=== PATIENT | male | born 1940 | race Caucasian/White ===

== ENCOUNTER 2018-01-03 09:07 | Day surgery (SDC) | payer OTHER ==
[2017-12-30 09:25] LABS: Absolute Lymphocytes (CBC) 1.5 K/uL (0.7-4.9); Absolute Monocytes 0.8 K/uL (0.1-1.3); Absolute Neutrophil 5.3 K/uL (1.8-8.0); Basophils % 0.3 % (0-1.3); Eosinophils % 1.7 % (0-4.4); Hematocrit 39.7 % (39.6-49.0); Lymphocytes % 19.5 % (15.3-44.8); MCH 28.6 pg (27.0-35.0); MCV 84.2 fL (80-100); RBC Red Blood Cell Count 4.71 M/uL (4.33-5.43)
[2017-12-30 09:30] LABS: Protime INR 1.28
--- NOTE | 2017-12-30 09:49 | RAD REPORT ---
EXAM DESCRIPTION: Alberta Arias (2 Views)12/30/2017 9:19 am CLINICAL HISTORY: Chest pain COMPARISON: 2016 FINDINGS: The lungs appear clear of acute infiltrate. The heart is normal size IMPRESSION: No acute abnormalities displayed
[2017-12-30 10:02] LABS: BUN Blood Urea Nitrogen 17 mg/dL (6-20); Bicarbonate 26 mEq/L (21-31); Glucose Level 120 mg/dL (65-120); Potassium 3.9 mEq/L (3.6-5.0); Sodium Level 140 mEq/L (135-145)
--- OUTSIDE RECORDS SUMMARY | 2018-01-03 09:10 | XMS REPORT | Clinical Summary ---
:1940 Author Organization [facility] Address [address] [place] [address] Care Team Providers Name Role Phone Fernando Asif MD Primary Care Provider Allergies No Known Allergies Current Medications Prescription Sig. Disp. Refills Start Date End Date Status metoprolol tartrate Take 100 mg by Active (LOPRESSOR) 100 mg tablet mouth 2 (two) times a day. pantoprazole (PROTONIX) Take 40 mg by mouth Active 40 MG EC tablet 2 (two) times a day. atorvastatin (LIPITOR) 10 Take 10 mg by mouth Active MG tablet daily. clopidogrel (PLAVIX) 75 Take 75 mg by mouth Active mg tablet daily. tamsulosin (FLOMAX) 0.4 Take 0.4 mg by Active mg capsule,extended mouth daily. release 24hr oxybutynin XL (DITROPAN Take 15 mg by mouth Active XL) 10 MG 24 hr tablet daily. traMADol (ULTRAM) 50 mg Take 50 mg by mouth Active tablet every 6 (six) hours as needed for moderate pain. amlodipine-benazepril Take 1 capsule by Active (LOTREL) 10-20 mg per mouth daily. capsule fluticasone (FLONASE) 50 2 sprays by Each Active mcg/actuation nasal spray Nare route daily. acetaminophen (TYLENOL) Take 500 mg by Active 500 MG tablet mouth every 6 (six) hours as needed for mild pain. cetirizine HCl (ALLERGY Take by mouth. Active RELIEF, CETIRIZINE, ORAL) Active Problems Not on file Encounters Date Type Specialty Care Team Description 12/27/2017 Procedure Pass Urology 12/20/2017 Pre-Admit Testing Pre-Admission Mukund Haynes Pre-op testing Appointment Testing MD Tanja (Primary Dx) after 01/02/2017 Social History Tobacco Use Types Packs/Day Years Used Date Never Smoker Smokeless Tobacco: Never Used Alcohol Use Drinks/Week oz/Week Comments Yes 2/week Sex Assigned at Date Recorded Not on file Last Filed Vital Signs Vital Sign Reading Time Taken Blood Pressure 144/65 12/20/2017 3:11 PM CDT Pulse 52 12/20/2017 3:11 PM CDT Temperature 36.7 C (98.1 F) 12/20/2017 3:11 PM CDT Respiratory Rate 18 12/20/2017 3:11 PM CDT Oxygen Saturation 96% 12/20/2017 3:11 PM CDT Inhaled Oxygen Concentration - - Weight 104 kg (230 lb) 12/20/2017 3:11 PM CDT Height 162.6 cm (5' 4") 12/20/2017 3:11 PM CDT Body Mass Index 39.48 12/20/2017 3:11 PM CDT Plan of Treatment Health Maintenance Due Date Last Done Comments COLONOSCOPY 1992 SHINGRIX VACCINE (#1) 1992 ZOSTER VACCINE 2002 PNEUMOCOCCAL POLYSACCHARIDE VACCINE AGE 65 AND OVER 2007 PNEUMOCOCCAL-13 2007 INFLUENZA VACCINE 03/29/2018 Results Urine culture (12/20/2017 4:30 PM) Component Value Ref Range Urine culture SEE COMMENTComment: Bacteriuria screen negative. Specimen Performing Laboratory [facility] DEPARTMENT OF PATHOLOGY AND GENOMIC MEDICINE [address] [place] [id number] Urinalysis screen and microscopy, with reflex to culture (12/20/2017 3:04 PM) Component Value Ref Range Specimen site Clean catch Color, UA Yellow Appearance, UA Clear Specific gravity, UA 1.021 1.001 - 1.035 pH, UA 5.0 5.0 - 8.5 Protein, UA 1+ (A) Negative Glucose, UA Negative Negative Ketones, UA Negative Negative Bilirubin, UA Negative Negative Blood, UA Negative Negative Nitrite, UA Negative Negative Urobilinogen, UA <2.0 <2.0 Leukocyte esterase, UA Negative Negative Epithelial cells, UA <1 /HPF WBC, UA 1 0 - 1 /HPF RBC, UA 2 0 - 5 /HPF Bacteria, UA Few None seen Yeast, UA None seen Yeast with pseudohyphae, UA None seen Hyaline casts, UA 17 /LPF Specimen Performing Laboratory Urine [facility] DEPARTMENT OF PATHOLOGY AND GENOMIC MEDICINE [address] [place] [address] [place] [address] Estimated GFR (12/20/2017 3:04 PM) Component Value Ref Range GFR Non Af Amer 73 mL/min/1.73 m2 GFR Af Amer 88 mL/min/1.73 m2 Comment: Chronic kidney disease: <60 mL/min/1.73m2 Kidney failure: <15 mL/min/1.73m2 The estimated GFR is calculated from the IDMS-traceable Modification of Diet in Renal Disease Equation. The accuracy of the calculation is poor when the creatinine is normal. Calculated values >90 mL/min/1.73m2 are not reported. This equation has not been validated in children (<18 years), women, the elderly (>70 years), or ethnic groups other than Caucasians and Americans. Specimen Performing Laboratory Plasma specimen [facility] DEPARTMENT OF PATHOLOGY AND [address] [address] CBC with platelet and differential (12/20/2017 3:04 PM) Component Value Ref Range WBC 8.19 4.50 - 11.00 k/uL RBC 4.47 4.40 - 6.00 m/uL HGB 12.7 (L) 14.0 - 18.0 g/dL HCT 38.6 (L) 41.0 - 51.0 % MCV 86.4 82.0 - 100.0 fL MCH 28.4 27.0 - 34.0 pg MCHC 32.9 31.0 - 37.0 g/dL RDW - SD 43.2 37.0 - 55.0 fL MPV 10.0 8.8 - 13.2 fL Platelet count 177 150 - 400 k/uL Nucleated RBC 0.00 /100 WBC Neutrophils 63.4 39.0 - 69.0 % Lymphocytes 22.2 (L) 25.0 - 45.0 % Monocytes 11.7 (H) 0.0 - 10.0 % Eosinophils 1.6 0.0 - 5.0 % Basophils 0.6 0.0 - 1.0 % Immature granulocytes 0.5Comment: "Immature granulocytes" 0.0 - 1.0 % (promyelocytes, myelocytes, metamyelocytes) Specimen Performing Laboratory Blood [facility] DEPARTMENT OF PATHOLOGY AND [address] [address] Basic metabolic panel (12/20/2017 3:04 PM) Component Value Ref Range Sodium 143 135 - 148 mEq/L Potassium 4.0 3.5 - 5.0 mEq/L Chloride 102 98 - 112 mEq/L CO2 27 24 - 31 mEq/L Anion gap 14 7 - 15 mEq/L Comment: Starting from November , anion gap calculation no longer incorporates potassium. Please note the change. BUN 17 8 - 23 mg/dL Creatinine 1.0 0.7 - 1.2 mg/dL Glucose 110 (H) 65 - 99 mg/dL Calcium 9.1 8.8 - 10.2 mg/dL Specimen Performing Laboratory Plasma specimen [facility] DEPARTMENT OF PATHOLOGY AND GENOMIC MEDICINE [address] [place] [phone] after 01/02/2017 Insurance Payer Benefit Plan / Group Subscriber ID Type Phone Address AETNA MEDICARE AETNA MEDICARE HMO/PPO [facility] xxxxxxxx O [phone] [place] [phone]
[2018-01-03] MEDS ORDERED: NA CHLORIDE 0.9% 500 ML ONE (09:48)
[2018-01-03] MEDS ORDERED: LIDOCAINE 1% 20 ML MDV ONE (13:06)
[2018-01-03] MEDS ORDERED: HEPA 1000U/500MLS 0 UNIT/0 ML BAG IV ONE (13:06)
[2018-01-03] MEDS ORDERED: FENTANYL CITR 100 MCG/2 ML ONE ×3 (13:16→14:55)
[2018-01-03] MEDS ORDERED: MIDAZOLAM HCL 2 MG/2 ML INJ ONE ×2 (13:16→13:41)
[2018-01-03] MEDS ORDERED: NA CHLORIDE 0.9% 50 ML ONE (13:29)
[2018-01-03] MEDS ORDERED: ATROPINE SULF 1 MG/10 ML SYR IV ONE (13:29)
[2018-01-03] MEDS ORDERED: HEPA 1000U/500MLS 1,000 UNIT/500 ML BAG IV ONE (13:54)
[2018-01-03] MEDS ORDERED: CLOPIDOGREL 75 MG TABLET ONE (14:14)
[2018-01-03] MEDS ORDERED: cloNIDine HCl 0.1 MG TAB ONE (15:07)
[2018-01-03 16:27] VITALS: BMI 41.5
[2018-01-03] MEDS ORDERED: ACETAMINOPHEN 325 MG TABLET PO PRN (16:45)
[2018-01-03] MEDS ORDERED: NITROGLYCERIN 0.4 MG/TAB SL PRN (16:45)
[2018-01-03] MEDS: NA CHLORIDE 0.9% 1,000 ML IV SCH (17:15)
[2018-01-04 00:40] VITALS: O2SAT 98
[2018-01-04 04:11] LABS: Absolute Lymphocytes (CBC) 1.8 K/uL (0.7-4.9); Absolute Monocytes 1.1 K/uL (0.1-1.3); Absolute Neutrophil 6.4 K/uL (1.8-8.0); Basophils % 0.3 % (0-1.3); Eosinophils % 1.2 % (0-4.4); Hematocrit 37.6 % (39.6-49.0); Lymphocytes % 19.3 % (15.3-44.8); MCH 28.5 pg (27.0-35.0); MCV 85.6 fL (80-100); MPV 8.1 fL (7.6-11.3); Monocytes % 11.9 % (3.3-12.3); RBC Red Blood Cell Count 4.39 M/uL (4.33-5.43)
[2018-01-04 04:35] LABS: Potassium 3.6 mEq/L (3.6-5.0)
[2018-01-04] MEDS: NA CHLORIDE 0.9% 1,000 ML IV SCH (07:18)
[2018-01-04 09:44] VITALS: BP 154/71; TEMP 98.4
--- NOTE | 2018-01-04 11:58 | EKG ---
Test Date: 2018-01-04 Test Time: 08:30:37 Testing Engineer: SHANTEL MEASUREMENT RESULTS: Intervals: Rate: 67 WA: 150 QRSD: 96 QT: 408 QTc: 431 [place]: P: 37 WA: 150 QRS: 40 T: 78 INTERPRETIVE STATEMENTS: Normal sinus rhythm Inferior infarct, age undetermined Abnormal ECG Compared to ECG 01/01/2016 13:23:41 Myocardial infarct finding now present Sinus bradycardia no longer present Electronically Signed On 01-04-18 11:58:34 CDT by Ez Lewis
--- NOTE | 2018-01-04 16:58 | OP ---
Date of Procedure: 01/03/2018 Surgeon: Roberto Maldonado MD Telecommunications Specialist: Lucy Sierra. Procedures: Left heart catheterization, angioplasty, and stent of the first obtuse marginal. History Of Present Illness: Mr. Cabrera was admitted as an outpatient. He is a 77-year-old white male with history of coronary artery disease status post multiple stents with unstable angina. A 6-Serbian sheath was introduced in the right common femoral artery. A 4 mg of Versed were given for IV sedation. Angio-Seal was used to close the case. Six-Serbian catheters were used to inject the l eft main and the right main. His RCA has about a 30% to 40% to mid RCA stenosis, but a 60% ostial po sterior descending artery stenosis. His left system showed a patent LAD stent, patent diagonal stent , and patent ramus stent. He had a new lesion in the obtuse marginal. An XBLAD 3.0 was used to nicko ulate the left main. A Newport wire was used to cross the lesion. A 2.25 x 15 Emerge balloon was use d to pre-dilate the stenosis. A 2.25 x 16 Synergy was placed with 0% residual. The patient tolerate d the procedure well. Complications: None. Blood Loss: 5 cc. Total Conscious Sedation: 45 minutes. Final Diagnosis: Coronary artery disease status post OM stent. Patent LAD, ramus, and diagonal sten t. He will remain in the hospital overnight and be discharged tomorrow on his home medications. He received Angiomax, aspirin, and 300 of Plavix during the procedure. GLEN/JOSSIEL Voice ID: [id number] Report ID: [id number]
== END 2018-01-04 11:10 | disposition home or self-care (01) ==
LOC: CCL 09:07 → 4TH 14:26 → CCL 01-04 11:10
DX: I25.110 Atherosclerotic heart disease of native coronary artery with unstable angina pectoris (principal); I10 Essential (primary) hypertension; E78.6 Lipoprotein deficiency; Z95.5 Presence of coronary angioplasty implant and graft; Z87.891 Personal history of nicotine dependence; Z91.048 Other nonmedicinal substance allergy status; Z82.49 Family history of ischemic heart disease and other diseases of the circulatory system
CPT/HCPCS: 36415 ×2; 71046; 80048 ×2; 80061; 85025 ×2; 85347 ×3; 85610; 85730; 93005; 93454; C1725; C1760; C1877; C1893; C9600; J0583; J2250 ×2; J3010 ×3; J7030

== ENCOUNTER 2019-09-25 16:14 | Observation (INO) | payer OTHER ==
[2019-09-25 16:45] VITALS: BMI 41.7
[2019-09-25 17:23] LABS: Absolute Lymphocytes (CBC) 1.5 K/uL (0.7-4.9); Basophils % 0.7 % (0-1.3); Hematocrit 37.5 % (39.6-49.0); Lymphocytes % 21.4 % (15.3-44.8); MPV 7.8 fL (7.6-11.3); RBC Red Blood Cell Count 4.43 M/uL (4.33-5.43)
[2019-09-25 17:29] LABS: Protime INR 1.41
[2019-09-25 17:33] LABS: Urine Appearance CLEAR; Urine Bilirubin NEGATIVE (NEG); Urine Blood NEGATIVE (NEG); Urine Color YELLOW; Urine Glucose NEGATIVE (NEG); Urine Protein NEGATIVE (NEG); Urine Urobilinogen 0.2 mg/dL (0.2-1.0)
[2019-09-25 17:36] LABS: Urine Microscopic Reflex NO UMIC
[2019-09-25] MEDS: ENOXAPARIN 40 MG/0.4 ML SQ SCH (17:42)
[2019-09-25] MEDS ORDERED: INFLUENZA VACCINE (for 3y+) 0.5 ML DOSE IMVAC ONE (18:00)
[2019-09-25] MEDS ORDERED: DIPHENHYDRAMINE 25 MG TAB/CAP PO PRN (18:00)
[2019-09-25] MEDS ORDERED: POLYETHYL GLY 3350 17 GM/DOSE PO PRN (18:00)
[2019-09-25] MEDS ORDERED: ONDANSETRON 4 MG (ODT) TAB PO PRN (18:00)
[2019-09-25] MEDS ORDERED: ACETAMINOPHEN 325 MG TABLET PO PRN ×2 (18:00→18:48)
[2019-09-25] MEDS ORDERED: LOPERAMIDE HCL 2 MG CAPSULE PO PRN (18:00)
[2019-09-25] MEDS ORDERED: NACHLORIDE 0.45% 1,000 ML IV SCH (18:00)
[2019-09-25] MEDS ORDERED: ONDANSETRON 4 MG/2 ML VIAL IV PRN (18:00)
[2019-09-25] MEDS ORDERED: PNEUMOCOCCAL VACCINE 0.5 ML IMVAC ONE (18:00)
[2019-09-25 18:07] LABS: Albumin 3.6 g/dL (3.4-5.0); Bilirubin Direct 0.1 mg/dL (0-0.2); Bilirubin Total 0.4 mg/dL (0.2-1.0); Magnesium 1.1 mg/dL (1.8-2.4); Phosphorus 3.1 mg/dL (2.5-4.9); Protein, Total 7.2 g/dL (6.4-8.2)
[2019-09-25 18:08] LABS: Thyroid Stimulating Hormone 5.01 uIU/mL (0.360-3.740)
[2019-09-25 18:14] LABS: Potassium 2.8 mmol/L (3.5-5.1)
[2019-09-25] MEDS ORDERED: Magnesium Sulfate 2gm IVPB 2 G/50 ML BAG IV ONE (18:31)
[2019-09-25] MEDS ORDERED: NA CHLORIDE 0.9% 500 ML with POTASSIUM CL 40 MEQ IV ONE ×2 (20:00)
--- NOTE | 2019-09-25 20:27 | RAD REPORT ---
EXAM DESCRIPTION: CT - Abdomen Pelvis W Contrast - 09/25/2019 7:23 pm CLINICAL HISTORY: diffuse abdomen pain,complicated hernia,fever COMPARISON: Abdomen Pelvis W Contrast dated 01/01/2016 TECHNIQUE: Biphasic, helical CT imaging of the abdomen and pelvis was performed following 100 ml non -ionic IV contrast. Oral contrast was given. All CT scans are performed using dose optimization technique as appropriate and may include automated exposure control or mA/KV adjustment according to patient size. FINDINGS: No suspicious findings in the lung bases. Liver shows a mild fatty infiltration pattern. No focal liver lesion identified. Spleen and pancreas show no suspicious findings. Gallbladder and biliary tree are also without suspicious finding. Renal function is symmetric. Bilateral hydronephrosis is present involving pelvis, calices and ureter s down to the UVJ level. No obstructing or nonobstructing calculi. No bladder wall thickening or mass identified. Minimal bladder diverticulum noted. Hydronephrosis was not present on the 2016 study. No solid mass lesions seen. A cyst is present in the upper pole. No pyelonephritis or acute parenchymal process. No adrenal abnormalities. No dilated bowel loops or bowel wall thickening. Appendix is normal. Patient has diverticulosis but n o acute diverticulitis confirmed. No colon mass lesion. No free air, free fluid or inflammatory stran ding. No mass or bulky lymphadenopathy. A 15 millimeter lymph node is seen in the lateral lower pelv is. Additional small 12 millimeter lymph node is seen in this region as well. Fat only umbilical vic ia is present similar to comparison. Small fat filled inguinal hernias are present. Disc and bony degenerative changes are present. Postsurgical changes noted as well. IMPRESSION: Patient has bilateral mild hydronephrosis down to the level of the urinary bladder. No o bstructing calculus or mass. Etiology for the dilatation is unknown. This may be functional due to we ll filled bladder. Patient has diverticulosis without measurable diverticulitis. Mild or early diverticulitis or mucosal level inflammatory changes can be occult. Small bilateral lymph nodes are seen in the pelvis. These are new from prior imaging. Etiology is non specific. These can be monitored. No pyelonephritis or acute renal parenchymal process.
--- NOTE | 2019-09-25 20:45 | RAD REPORT ---
EXAM DESCRIPTION: RAD - Chest Pa And Lat (2 Views) - 09/25/2019 7:32 pm CLINICAL HISTORY: abd pain COMPARISON: Chest Pa And Lat (2 Views) dated 12/30/2017; CHEST PA AND LAT 2 VIEW dated 03/02/2000 TECHNIQUE: Frontal and lateral views of the chest were obtained. FINDINGS: The lungs are underinflated which accentuates lung markings. No pulmonary contusion, mass, infiltrate or other significant finding. Lung base atelectasis present. Lateral view is degraded by shallow inspiration and substantial motion. Heart size is normal and central vasculature is within n ormal limits. No pleural effusion or pneumothorax seen. No acute bony finding noted. No aortic abn ormality. IMPRESSION: Limited chest examination without acute finding.
[2019-09-25] MEDS ORDERED: CIPROFLOXACIN 400 MG/200 ML IVPB IV SCH (21:00)
[2019-09-25] MEDS: TAMSULOSIN 0.4 MG SR CAP PO SCH (21:00)
[2019-09-25] MEDS: METOPROLOL TAR 50 MG TAB PO SCH (21:00)
[2019-09-26] MEDS ORDERED: KCL 20 MEQ/100 mL IVPB 20 MEQ/100 ML BAG IV ONE
[2019-09-26] MEDS ORDERED: METRONIDAZOLE 500mg IVPB 500 MG/100 ML BAG IV SCH (01:00)
[2019-09-26 04:16] LABS: Absolute Lymphocytes (CBC) 1.3 K/uL (0.7-4.9); Basophils % 0.3 % (0-1.3); Hematocrit 36.3 % (39.6-49.0); Lymphocytes % 16.6 % (15.3-44.8); MPV 8.4 fL (7.6-11.3); RBC Red Blood Cell Count 4.28 M/uL (4.33-5.43)
[2019-09-26 04:37] LABS: Magnesium 1.8 mg/dL (1.8-2.4)
[2019-09-26] MEDS ORDERED: MAGNESIUM SULFATE 1 gm IVPB 1 GM/100 ML BAG IV ONE (06:00)
[2019-09-26] MEDS: TAMSULOSIN 0.4 MG SR CAP PO SCH ×2 (08:14→21:00)
[2019-09-26] MEDS: CLOPIDOGREL 75 MG TABLET PO SCH (08:17)
[2019-09-26] MEDS: ENOXAPARIN 40 MG/0.4 ML SQ SCH (08:28)
[2019-09-26] MEDS: METOPROLOL TAR 50 MG TAB PO SCH ×2 (08:28→21:00)
[2019-09-26] MEDS: AMLODIPINE 5 MG TAB PO SCH (08:28)
[2019-09-26] MEDS: BENAZEPRIL 20 MG TAB PO SCH (08:28)
[2019-09-26] MEDS: ATORVASTATIN 10 MG TAB PO SCH (08:29)
[2019-09-26] MEDS ORDERED: HOME MED 1 EA UNK (Amlodipine Besylate/Benazepril [Amlodipine-Benazepril 5-20 Mg] 1 EACH) PO SCH (09:00)
[2019-09-26] MEDS ORDERED: OXYCODONE HCL PO SCH (09:00)
--- NOTE | 2019-09-26 11:47 | RAD REPORT ---
EXAM DESCRIPTION: US - Extrem Venous W Compress Glenn - 09/26/2019 11:40 am CLINICAL HISTORY: bilateral leg swelling Bilateral leg edema and swelling. COMPARISON: EXT VENOUS UNI LTD dated 04/11/2010 TECHNIQUE: Real-time sonographic interrogation of the left and right lower extremity deep venous sys tems was performed. FINDINGS: Normal compressibility, flow augmentation, phasic flow and spontaneous flow is identified in both the left and right lower extremity deep venous systems. IMPRESSION: No sonographic evidence of left or right lower extremity deep venous thrombosis.
[2019-09-26] MEDS ORDERED: POTASSIUM 25 MEQ EFFERV TAB PO ONE (12:00)
--- NOTE | 2019-09-26 13:02 | CON ---
Reason For Consultation: 1.Umbilical hernia. 2.Abdominal pain. History Of Present Illness: Patient is a 79-year-old gentleman who presents with a low-grade tempera ture. He has urinary incontinence somewhat and some diffuse abdominal discomfort and lower groin morales n but no nausea, no vomiting. No diarrhea. No constipation. No blood in the stool. No blood in hi s urine. No sore throat, runny nose, cough, headaches, or dizziness. No chest pain and the temperat ure has been in the 99.9 to 100 at home. Review of Systems: Otherwise unremarkable. Past Medical History: Hypertension, coronary artery disease. Past Surgical History: Stent placement in his heart, back surgery. Allergies: NONE. Social History: Reviewed. Family History: Noncontributory. Physical Examination: Vital Signs: Stable. He is afebrile. General: He is awake, alert, oriented x3. Head and Neck: Cranial nerves 2 through 12 are grossly within normal limits. No neck masses. No JV D. Throat clear. Neck is supple. Chest: Clear. Heart: S1 and S2. Abdomen: Soft, nondistended. Positive bowel sounds. Nontender. There is a supraumbilical hernia s mall, nontender, not tense, no redness. Extremity: Adequately perfused. Nontender. Neuro: Nonfocal. Laboratory Data: White count is 7.7, H and H are 12.3 and 36.3. Chemistry reviewed. He had signific ant hypokalemia which has been replaced and magnesium was low which is being replaced. UA is negativ e. CT of the abdomen and pelvis are reviewed, shows bilateral mild hydronephrosis down to the level of the urinary bladder. No obstructing calculus or mass. Etiology of the dilatation is unknown, thi s may be functional due to well-filled bladder. Patient has diverticulosis without diverticulitis. Small bilateral lymph nodes are seen in the pelvis. These are new from previous imaging and can be m onitored. No pyelonephritis is seen. Only umbilical hernia is present similar to the previous lakisha rison without change and small fat filled inguinal hernias are present. Assessment: A 79-year-old gentleman with umbilical hernia, asymptomatic, lymphadenopathy, hydrourete r. Recommendations: Patient does not need urgent surgical intervention. He does need urology evaluatio n for his hydroureter and he will need follow up on his lymphadenopathy that is mild. Plan of care d iscussed with the patient and Dr. Asif. AMY/CHANTELL Voice ID: [id number] Report ID: [id number]
[2019-09-26] MEDS ORDERED: GUAIFENESIN/DM 5 ML UCUP PO ONE (21:00)
[2019-09-26] MEDS ORDERED: DIPHENHYDRAMINE 25 MG TAB/CAP ONE (22:41)
--- NOTE | 2019-09-27 01:33 | PN ---
Subjective: Mr. Cabrera is doing a lot better. He has pretty significant edema in his legs, but his v enous Doppler is negative for any clots. His fever has resolved. His abdominal pain has resolved. Physical Examination: Vital Signs: His blood pressure is 137/72, pulse is 84, temperature 98.2. General: He is a morbidly obese gentleman. Chest: Clear. Heart: Regular. Abdomen: No guarding, no rebound, no rigidity. Investigations: CT abdomen and pelvis shows hydronephrosis and venous Doppler negative for any clots in the legs. Dr. Okeefe wanted to keep him here 1 more day to watch him because he is inserting a Fo trena catheter in this gentleman who needs a prostate surgery. Assessment And Plannin.Urinary retention. Valencia catheter and prostate surgery in future. He does not want to do it here . He has Dr. Haynes as his urologist in [place]. Dr. Haynes has not been able to do surgery because he refuses, that is one thing and second thing is Dr. Maldonado has not been able to clear him as he ne eds an angiogram and I am wondering why he needs angiogram. He could possibly do a chemical stress t est, but according to patient, that has become inconclusive for him in the past. 2.Profuse lower limb edema. This is because of amlodipine. I have suggested him to change his amlo dipine to a different medication. This gentleman, Mr. Cabrera is resistant about every recommendation in the beginning and I think in the office he may change his opinion about the changes of medication. I believe changing from amlodipine and benazepril to a different medication like Benicar HCT may take care of his edema to a significant extent. RVD/MODL Voice ID: [id number] Report ID: [id number]
[2019-09-27 04:37] LABS: Magnesium 1.7 mg/dL (1.8-2.4); Potassium 3.1 mmol/L (3.5-5.1)
[2019-09-27 05:59] VITALS: O2SAT 94
[2019-09-27] MEDS ORDERED: POTASSIUM CL SA 10 MEQ TAB PO ONE (06:33)
[2019-09-27] MEDS ORDERED: MAGNESIUM SULFATE 1 gm IVPB 1 GM/100 ML BAG IV ONE (06:34)
[2019-09-27 08:14] VITALS: BP 113/51; TEMP 98.3
[2019-09-27] MEDS: ATORVASTATIN 10 MG TAB PO SCH (08:59)
[2019-09-27] MEDS: METOPROLOL TAR 50 MG TAB PO SCH (08:59)
[2019-09-27] MEDS: BENAZEPRIL 20 MG TAB PO SCH (08:59)
[2019-09-27] MEDS: TAMSULOSIN 0.4 MG SR CAP PO SCH (08:59)
[2019-09-27] MEDS: ENOXAPARIN 40 MG/0.4 ML SQ SCH (09:00)
[2019-09-27] MEDS: AMLODIPINE 5 MG TAB PO SCH (09:00)
[2019-09-27] MEDS: CLOPIDOGREL 75 MG TABLET PO SCH (09:00)
--- NOTE | 2019-09-27 10:28 | CON ---
History Of Present Illness: This is a 79-year-old gentleman, patient of Dr. Huffman, who had a urologist in [place], Dr. Haynes, who had recommended BPH operation for the patient, but the patient in the wound care. He went ahead and had a back operation and since then he has been having overflow incontinence and some bowel issues with that. He came in last night mainly for abdominal discomfort, possible some low-grade fevers. He has seen a general surgeon, Dr Peralta and had a CAT scan. He has a very distended bladder up to the umbilicus with bilateral hydronephrosis. He needs a pineda Catheter KIP. He finally agreed after discussing it with his . We placed an 18-Spanish coude catheter in his bladder, clamped it after the first 300 cc drain. The nurse will drain pineda every half hour for another 300 cc and re-clamped and he can go home with a Pineda plug in the morning. He is to empty the bladder 4 times a day at home. Follow up with me in 2 weeks. Continue Flomax. We went ahead and stopped his oxybutynin that may be causing some bladder paralysis there and see how he does. He will need a cysto, uroflow performed at his appointment, and discuss about a TURP at that time. He has a low PSA in Dr. Asif's office. His GARIMA felt a little firm at the mid apex. Past Medical History: Hypertension, coronary artery disease. Past Surgical History: Stent placement in his heart multiple times, back surgery. Allergies: TO TAPE. Social History: Reviewed. Family History: Noncontributory. Physical Examination: General: Awake. Latest Vital Signs: He is afebrile, stable. 97 temperature, 56 pulse, 16 respirations, 185/75 blood pressure, 93% sat. HEENT: Atraumatic, normocephalic. Lungs: Clear. Abdomen: Soft, nontender. : Both testicles descended. Phallus uncircumcised. Extremities: Normal range of motion. Laboratory Data: White count 7.7, H and H 12 and 36, platelet count 187. __, PTT 137. Chemistry: Sodium 144, potassium 3.4, chloride 109, carbon dioxide 30 , BUN 17, creatinine 1.03, GFR 58, glucose 111, calcium 7.7, magnesium 1.8. Assessment: Urinary retention, most likely due to BPH, on oxybutynin. We will go ahead and stop the oxybutynin. We went ahead and placed an 18-Spanish coude. He was prepped and draped and lidocaine gel placed in the urethra. 18-Spanish catheter slowly advanced into the bladder with good return of clear urine, 10 cc inside the catheter. Catheter was placed to a bag. Clamped after 300 cc. He may go home in the morning with Pineda, possible low-dose antibiotic for infection. Follow up with me in 2 weeks for cysto, uroflow, and a decision about his prostate. DAVID/CHANTELL Voice ID: [id number] Report ID: [id number] OMAYRA
--- NOTE | 2019-09-27 13:23 | PN ---
Date of Progress Note: 09/27/2019 Subjective: Patient is awake, alert, tolerating diet. He was seen by Dr. Okeefe and has a Valencia in [facility]. Physical Examination: Vital Signs: Stable. He is afebrile. Abdomen: Benign. Assessment: Umbilical hernia and hydroureter, urinary retention. Recommendations: Management for Urology. No need for acute general surgical intervention at this ti mi. Should he become asymptomatic from his umbilical hernia, he can follow up as an outpatient in my office. Re-consult jennifer REYES/CHANTELL Voice ID: [id number] Report ID: [id number]
--- NOTE | 2019-09-28 05:32 | DS ---
Date of Discharge: 09/27/2019 Final Diagnosis: Ureteric obstruction from prostatic hypertrophy. Secondary Diagnoses: Hypertension, morbid obesity, severe edema of lower limbs. Hospital Course: Patient, who is a 79-year-old obese gentleman, who comes in with weakness, abdomina l pain, and low-grade fever. I admitted him. I decided to do CT scan of the abdomen that found him to have bilateral hydronephrosis from benign prostatic hypertrophy. Patient said he is aware of the situation. He has been to Dr. Haynes, who wants to do surgery, but he is not able to get clearance f rom Dr. Maldonado yet and he could not pass a stress test and he was not willing for angiogram. After placement of Valencia catheter, patient was held [address] Okeefe at the hospital, now he is disc harged in stable condition. I am giving him potassium and magnesium supplementation for next 10 days . I have tried to change his blood pressure medications because amlodipine is giving rise to edema h e has and he is on amlodipine-benazepril combination. He is refusing so far, but he may consider at home on outpatient basis. He will need surgery for TURP and Dr. Okeefe will take care of that locally . Prognosis overall guarded. For last 5 years I have advised him to lose weight. 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 Today, I saw him eating 3 pieces of cake for breakfast brought by his . Once again, I have told him to really watch diet, avoiding processed carbohydrates, eat natural food, follow paleo diet and lose weight, and I hope they consider. CLAUDIAD/MODL Voice ID: [id number] Report ID: [id number]
== END 2019-09-27 11:34 | disposition home or self-care (01) ==
LOC: 4TH 16:14 → UNDODISOB 09-26 14:04
PROVIDERS: ADMIT Internal Medicine; ATTEND Internal Medicine
DX: N13.1 Hydronephrosis with ureteral stricture, not elsewhere classified (principal); N40.1 Benign prostatic hyperplasia with lower urinary tract symptoms; R33.8 Other retention of urine; N13.30 Unspecified hydronephrosis; K42.9 Umbilical hernia without obstruction or gangrene; E66.01 Morbid (severe) obesity due to excess calories; Z68.41 Body mass index [BMI] 40.0-44.9, adult; I10 Essential (primary) hypertension; I25.10 Atherosclerotic heart disease of native coronary artery without angina pectoris; Z95.5 Presence of coronary angioplasty implant and graft
CPT/HCPCS: 85025 ×2; 80048 ×2; 36415 ×3; 82150; 83735 ×3; 84100; 84132 ×2; 85610; 80076; 85730; 84443; 81003; 84439; 82607; 83690; 84145; 82306; 74177; 71046; 93970; Q9967; G0379; J3475 ×3; J7040; J0744; G0378 ×4

== ENCOUNTER 2020-02-09 10:27 | Emergency (ER) | payer OTHER ==
--- OUTSIDE RECORDS SUMMARY | 2020-02-09 10:30 | XMS REPORT | Clinical Summary ---
:1940 Author Organization [facility] Address [address] [place] [address] Care Team Providers Name Role Phone MD Yefri Primary Care Provider Allergies Active Allergy Reactions Severity Noted Date Comments Other 08/30/2018 TAPES "tear sk in" Medications Medication Sig Dispensed Refills Start Date End Date Status metoprolol tartrate Take 100 mg by 0 Active (LOPRESSOR) 100 mg tablet mouth nightly. pantoprazole (PROTONIX) 40 Take 40 mg by 0 Active MG EC tablet mouth 2 (two) times a day. atorvastatin (LIPITOR) 10 Take 10 mg by 0 Active MG tablet mouth every evening. clopidogrel (PLAVIX) 75 mg Take 75 mg by 0 Active tablet mouth every evening. tamsulosin (FLOMAX) 0.4 mg Take 0.4 mg by 0 Active capsule,extended release mouth 2 (two) 24hr times a day. oxybutynin XL (DITROPAN Take 15 mg by 0 Active XL) 10 MG 24 hr tablet mouth every evening. traMADol (ULTRAM) 50 mg Take 50 mg by 0 Active tablet mouth 3 (three) times a day as needed for moderate pain. amlodipine-benazepril Take 1 capsule 0 Active (LOTREL) 10-20 mg per by mouth capsule daily. fluticasone (FLONASE) 50 2 sprays by 0 Active mcg/actuation nasal spray Each Nare route daily. acetaminophen (TYLENOL) Take 500 mg by 0 Active 500 MG tablet mouth every 6 (six) hours as needed for mild pain. cetirizine HCl (ALLERGY Take by mouth. 0 Active RELIEF, CETIRIZINE, ORAL) hydroCHLOROthiazide Take 25 mg by 0 Active (HYDRODIURIL) 25 MG tablet mouth every morning. benazepril (LOTENSIN) 40 Take 40 mg by 0 Active MG tablet mouth every morning. UNABLE TO FIND 2 Squirts into 0 Active each nostril 2 (two) times a day. Med Name: watura nector nasal spray Active Problems Not on file Social History Tobacco Use Types Packs/Day Years Used Date Never Smoker Smokeless Tobacco: Never Used Alcohol Use Drinks/Week oz/Week Comments Yes 2/week Sex Assigned at Date Recorded Not on file Job Start Date Occupation Industry Not on file Not on file Not on file Travel History Travel Start Travel End No recent travel history available. 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
--- NOTE | 2020-02-09 11:37 | EDPHYS ---
Physician Documentation [facility] Name: Ky Cabrera Age: 79 yrs Sex: Male : 1940 Arrival Date: 02/09/2020 Time: 10:29 Bed 17 Private MD: ED Physician uLis Alberto Sutherland HPI: 02/08 11:41 This 79 yrs old Male presents to ER via Ambulatory with complaints of Needs jr8 Urinary Catheter. 11:41 Associated signs and symptoms: The patient has no apparent associated signs or jr8 symptoms. The patient has experienced similar episodes in the past, chronically. The patient has been recently seen by a physician:. Patient sent to ED by roving changer to get urinary catheter placed. Dr. Robison called ED after getting patients US back. Stated that he had bilateral hydro secondary to prostate enlargement and elevated creatinine. Has follow up appointments set with urology and him again soon. Just needs catheter placed. Historical: - Allergies: 11:03 No Known Allergies; ca1 - Home Meds: 11:03 metoprolol tartrate 100 mg Oral tab 1 tab 2 times per day [Active]; pantoprazole 40 mg ca1 oral TbEC 1 tab 2 times per day [Active]; atorvastatin 10 mg oral tab 1 tab once daily [Active]; clopidogrel 75 mg oral tab 1 tab once daily [Active]; tamsulosin 0.4 mg oral cp24 1 cap once daily [Active]; magnesium oxide 400 mg Oral tab [Active]; amlodipine-benazepril 10-40 mg oral cap 1 cap once daily [Active]; tramadol 100 mg Oral Tb24 1 tab three times a day [Active]; - PMHx: 11:03 Hypertension; High Cholesterol; ca1 - PSHx: 11:03 Heart stents; ca1 - Immunization history:: Adult Immunizations not up to date. - Social history:: Smoking status: Patient denies any tobacco usage or history of. ROS: 11:41 Eyes: Negative for injury, pain, redness, and discharge, ENT: Negative for injury, jr8 pain, and discharge, Neck: Negative for injury, pain, and swelling, Cardiovascular: Negative for chest pain, palpitations, and edema, Respiratory: Negative for shortness of breath, cough, wheezing, and pleuritic chest pain, Abdomen/GI: Negative for abdominal pain, nausea, vomiting, diarrhea, and constipation, Back: Negative for injury and pain, MS/Extremity: Negative for injury and deformity, Skin: Negative for injury, rash, and discoloration, Neuro: Negative for headache, weakness, numbness, tingling, and seizure. 11:41 : Positive for small amounts. Exam: 11:41 Eyes: Pupils equal round and reactive to light, extra-ocular motions intact. Lids and jr8 lashes normal. Conjunctiva and sclera are non-icteric and not injected. Cornea within normal limits. Periorbital areas with no swelling, redness, or edema. ENT: Nares patent. No nasal discharge, no septal abnormalities noted. Tympanic membranes are normal and external auditory canals are clear. Oropharynx with no redness, swelling, or masses, exudates, or evidence of obstruction, uvula midline. Mucous membranes moist. Neck: Trachea midline, no thyromegaly or masses palpated, and no cervical lymphadenopathy. Supple, full range of motion without nuchal rigidity, or vertebral point tenderness. No Meningismus. Cardiovascular: Regular rate and rhythm with a normal S1 and S2. No gallops, murmurs, or rubs. Normal PMI, no JVD. No pulse deficits. Respiratory: Lungs have equal breath sounds bilaterally, clear to auscultation and percussion. No rales, rhonchi or wheezes noted. No increased work of breathing, no retractions or nasal flaring. Abdomen/GI: Soft, non-tender, with normal bowel sounds. No distension or tympany. No guarding or rebound. No evidence of tenderness throughout. Back: No spinal tenderness. No costovertebral tenderness. Full range of motion. Skin: Warm, dry with normal turgor. Normal color with no rashes, no lesions, and no evidence of cellulitis. MS/ Extremity: Pulses equal, no cyanosis. Neurovascular intact. Full, normal range of motion. Neuro: Awake and alert, GCS 15, oriented to person, place, time, and situation. Cranial nerves II-XII grossly intact. Motor strength 5/5 in all extremities. Sensory grossly intact. Cerebellar exam normal. Normal gait. Vital Signs: 10:36 BP 144 / 61; Pulse 64; Resp 15 S; Temp 97.5(TE); Pulse Ox 98% on R/A; Weight 113.85 kg ca1 (R); Height 5 ft. 5 in. (165.10 cm) (R); Pain 0/10; 12:35 BP 126 / 58; Pulse 65; Resp 15 S; Pulse Ox 97% on R/A; ca1 10:36 Body Mass Index 41.77 (113.85 kg, 165.10 cm) ca1 MDM: 10:41 Patient medically screened. jr8 11:35 Data reviewed: vital signs, nurses notes, and as a result, I will discharge patient. jr8 Data interpreted: Pulse oximetry: on room air is 98 %. Interpretation: normal. Counseling: I had a detailed discussion with the patient and/or guardian regarding: the historical points, exam findings, and any diagnostic results supporting the discharge/admit diagnosis, the need for outpatient follow up, a urologist, to return to the emergency department if symptoms worsen or persist or if there are any questions or concerns that arise at home. 02/08 10:53 Order name: Valencia-Coude; Complete Time: 11:32 jr8 Administered Medications: 12:00 Drug: Fedscreek 10 mg-325 mg 1 tabs {Note: RASS 0.} Route: PO; ca1 12:35 Follow up: Response: No adverse reaction; Pain is decreased; RASS: Alert and Calm (0) ca1 Disposition: 02/09/20 11:36 Discharged to Home. Impression: Hydroureter, Retention of urine. - Condition is Stable. - Discharge Instructions: Valencia Catheter Care, Adult, Acute Urinary Retention, Male, Hydronephrosis. - Medication Reconciliation Form, Thank You Letter, Antibiotic Education, Prescription Opioid Use form. - Follow up: Private Physician; When: 5 - 6 days; Reason: Recheck today's complaints, Continuance of care, Re-evaluation by your physician. - Problem is new. - Symptoms have improved. Addendum: 02/10/2020 16:55 Co-signature as Attending Physician, Luis Alberto Sutherland MD I agree with the assessment and c matos plan of care. Signatures: Luis Alberto Sutherland MD MD cha Roszak, Josh, PA PA jr8 Stacey Vega RN RN ca1 Corrections: (The following items were deleted from the chart) 02/08 12:43 11:36 02/09/2020 11:36 Discharged to Home. Impression: Hydroureter; Retention of urine. ca1 Condition is Stable. Forms are Medication Reconciliation Form, Thank You Letter, Antibiotic Education, Prescription Opioid Use. Follow up: Private Physician; When: 5 - 6 days; Reason: Recheck today's complaints, Continuance of care, Re-evaluation by your physician. Problem is new. Symptoms have improved. jr8
--- NOTE | 2020-02-09 11:37 | ER ---
Nurse's Notes [facility] Name: Ky Cabrera Age: 79 yrs Sex: Male : 1940 Arrival Date: 02/09/2020 Time: 10:29 Bed 17 Private MD: Diagnosis: Hydroureter;Retention of urine Presentation: 02/08 10:36 Chief complaint: Patient states: My doctor sent me here to have a catheter put in. I am ca1 retaining too much fluid in my body. Coronavirus screen: Proceed with normal triage. Patient denies a cough. Patient denies shortness of breath or difficulty breathing. Patient denies measured and/or subjective temperature greater than 100.4F prior to today's visit. Patient denies travel on a cruise ship or to a country the [facility] currently lists as an affected area. Patient denies contact with known and/or suspected case of COVID-19. Ebola Screen: Patient negative for fever greater than or equal to 101.5 degrees Fahrenheit, and additional compatible Ebola Virus Disease symptoms Patient denies exposure to infectious person. Patient denies travel to an Ebola-affected area in the 21 days before illness onset. No symptoms or risks identified at this time. Initial Sepsis Screen: Does the patient meet any 2 criteria? No. Patient's initial sepsis screen is negative. Does the patient have a suspected source of infection? No. Patient's initial sepsis screen is negative. Risk Assessment: Do you want to hurt yourself or someone else? Patient reports no desire to harm self or others. Onset of symptoms was February 09, 2020. 10:36 Method Of Arrival: Ambulatory ca1 10:36 Acuity: ML 4 ca1 Triage Assessment: 11:03 General: Appears in no apparent distress. comfortable, Behavior is calm, cooperative, ca1 appropriate for age. Pain: Denies pain. EENT: No signs and/or symptoms were reported regarding the EENT system. Neuro: Level of Consciousness is awake, alert, obeys commands, Oriented to person, place, time, situation. Cardiovascular: Heart tones S1 S2 present Capillary refill < 3 seconds Patient's skin is warm and dry. Respiratory: Airway is patent Respiratory effort is even, unlabored, Respiratory pattern is regular, symmetrical, Breath sounds are clear bilaterally. GI: Abdomen is round non-distended, Bowel sounds present X 4 quads. Abd is soft and non tender X 4 quads. : Reports "I can still urinate and I urinate enough but I am still retaining a lot too". Derm: Skin is intact, is healthy with good turgor, Skin is pink, warm \\T\\ dry. Musculoskeletal: Circulation, motion, and sensation intact. Capillary refill < 3 seconds. Historical: - Allergies: 11:03 No Known Allergies; ca1 - Home Meds: 11:03 metoprolol tartrate 100 mg Oral tab 1 tab 2 times per day [Active]; pantoprazole 40 mg ca1 oral TbEC 1 tab 2 times per day [Active]; atorvastatin 10 mg oral tab 1 tab once daily [Active]; clopidogrel 75 mg oral tab 1 tab once daily [Active]; tamsulosin 0.4 mg oral cp24 1 cap once daily [Active]; magnesium oxide 400 mg Oral tab [Active]; amlodipine-benazepril 10-40 mg oral cap 1 cap once daily [Active]; tramadol 100 mg Oral Tb24 1 tab three times a day [Active]; - PMHx: 11:03 Hypertension; High Cholesterol; ca1 - PSHx: 11:03 Heart stents; ca1 - Immunization history:: Adult Immunizations not up to date. - Social history:: Smoking status: Patient denies any tobacco usage or history of. Screenin:04 Abuse screen: Denies threats or abuse. Denies injuries from another. Nutritional ca1 screening: No deficits noted. Tuberculosis screening: No symptoms or risk factors identified. Fall Risk None identified. Assessment: 11:04 Reassessment: SEE TRIAGE notes. ca1 12:00 Reassessment: Pt complains of suprapubic pain. Denies cramps. Notified provider. VO ca1 Sheffield, given. Deflated balloon. 12:30 Reassessment: Pt verbalized feeling better, re-inflated balloon. No complains at this ca1 time. 12:35 Reassessment: Patient appears in no apparent distress at this time. Patient and/or ca1 family updated on plan of care and expected duration. Pain level reassessed. Patient is alert, oriented x 3, equal unlabored respirations, skin warm/dry/pink. Vital Signs: 10:36 BP 144 / 61; Pulse 64; Resp 15 S; Temp 97.5(TE); Pulse Ox 98% on R/A; Weight 113.85 kg ca1 (R); Height 5 ft. 5 in. (165.10 cm) (R); Pain 0/10; 12:35 BP 126 / 58; Pulse 65; Resp 15 S; Pulse Ox 97% on R/A; ca1 10:36 Body Mass Index 41.77 (113.85 kg, 165.10 cm) ca1 ED Course: 10:29 Patient arrived in ED. 5 10:34 Stacey Vega RN is Primary Nurse. ca1 10:37 Martin Augustin PA is PHCP. jr8 10:37 Luis Alberto Sutherland MD is Attending Physician. jr8 11:00 Triage completed. ca1 11:03 Arm band placed on right wrist. ca1 11:04 Patient has correct armband on for positive identification. Bed in low position. Call ca1 light in reach. Side rails up X 1. Pulse ox on. NIBP on. 11:32 Coud inserted, using sterile technique, 16 Fr. Returned clear yellow urine. To gravity ca1 drainage. Patient tolerated well. 12:42 No provider procedures requiring assistance completed. Patient did not have IV access ca1 during this emergency room visit. Administered Medications: 12:00 Drug: Sheffield 10 mg-325 mg 1 tabs {Note: RASS 0.} Route: PO; ca1 12:35 Follow up: Response: No adverse reaction; Pain is decreased; RASS: Alert and Calm (0) ca1 Output: 11:34 Urine: 750ml (Valencia); Total: 750ml. ca1 12:30 Urine: 500ml (Valencia); Total: 1250ml. 4 Outcome: 11:36 Discharge ordered by . [facility] 12:42 Discharged to home ambulatory, with family. ca1 12:42 Condition: stable 12:42 Discharge instructions given to patient, Instructed on discharge instructions, follow up and referral plans. Catheter care Demonstrated understanding of instructions, follow-up care. 12:43 Patient left the ED. ca1 Signatures: Martin Augustin PA PA [facility] Stacey Vega RN RN ca1 Eber Turner [facility] Juancarlos Bell 4 Corrections: (The following items were deleted from the chart) 12:43 12:35 BP 126 / 48; Pulse 65bpm; Resp 15bpm; Spontaneous; Pulse Ox 97% RA; ca1 ca1
[2020-02-09] MEDS ORDERED: HYDROCODONE/APAP 10/325 TAB ONE (11:56)
[2020-02-09 12:49] VITALS: TEMP 97.5
[2020-02-09 12:50] VITALS: BP 126/58; O2SAT 97
== END 2020-02-09 12:43 | disposition home or self-care (01) ==
LOC: ER 10:27
PROC: 0T9B70Z Drainage of Bladder with Drainage Device, Via Natural or Artificial Opening (ICD-10-PCS; principal; 2020-02-09)
DX: N13.4 Hydroureter (principal); R33.9 Retention of urine, unspecified; I10 Essential (primary) hypertension; E78.00 Pure hypercholesterolemia, unspecified
CPT/HCPCS: 99284

== ENCOUNTER 2020-10-22 14:00 | Observation (INO) | payer OTHER ==
--- OUTSIDE RECORDS SUMMARY | 2020-10-22 14:05 | XMS REPORT | Continuity of Care Document ---
:1940 Author Organization [facility] t Address [address] [place] [address] Care Team Providers Name Role Phone Yefri KNUTSON Primary Care Physician Sacha Haynes MD Attending Clinician Primitivo Hassan MD Attending Clinician Brigitte DAVIDSON Attending Clinician Camilla Rodriguez APRN Attending Clinician Jem De Jesus MD Attending Clinician Alexandro KNUTSON Attending Clinician BELA Admitting Clinician Unavailable Payers Payer Name Policy Type Policy Effective Date Expiration Date Sour ce Number AETNA MEDICAREAETNA [id number] 2013 [place] MEDICARE HMO/PPO 00:00:00 Methodis t [id number] -PresentHMO Problems Condition Condition Condition Status Onset Resolution Last Treating Co mments Source Name Details Category Date Date Treatment Clinician Date Urinary Urinary Disease Active [place] retention retention 05-20 Meth dutch due to due to 00:00: st benign benign 00 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 Social History Social Habit Start Date Stop Date Quantity Comments Source Sex Assigned At [facility] ethodist Tobacco use and 2020-09-17 2020-09-17 Never used Curry Gillespie ethodist exposure 00:00:00 00:00:00 Alcohol intake 2020-09-17 2020-09-17 Ex-drinker Curry Jackson thodist 00:00:00 00:00:00 (finding) Alcohol Comment 2017-12-20 2017-12-20 2/week Curry Gillespie ethodist 00:00:00 00:00:00 Smoking Status Start Date Stop Date Source Never smoker Curry Domiis t Medications Ordered Filled Start Stop Current Ordering Indication Dosage Frequency Signature Comments Components Source Medication Medication Date Date Medication? Clinician (SIG) Name Name clopidogrel 75mg QD Take 75 mg Zapien (PLAVIX) 75 09-16 by mouth Met hodi mg tablet 13:27: 00:[address] 43 :00 evening. metoprolol Yes 100mg Q.5D Take 100 [place] tartrate 1-19 mg by Methodi (LOPRESSOR) 13:27: mouth 2 st 100 mg 38 (two) tablet times a day. pantoprazol Yes 40mg QD Take 40 mg Zapien e 09-16 by mouth Methodi (PROTONIX) 13:27: daily. st 40 MG EC 38 tablet atorvastati Yes 10mg QD Take 10 mg Zapien n (LIPITOR) 09-16 by mouth Meth dutch 10 MG 13:27: every st tablet 38 evening. traMADol Yes 50mg Q.[id number] Take 50 mg Zapien (ULTRAM) 50 09-16 [id number] by mouth 3 Methodi mg tablet 13:27: 3D (three) st 38 times a day as needed for moderate pain. acetaminoph Yes 500mg Q6H Take 500 [place] en 1-19 mg by Method[facility] (TYLENOL) 13:27: mouth st 500 MG 38 every 6 tablet (six) hours as needed for mild pain. losartan-hy Yes 1{tbl} QD Take 1 [place] drochloroth 1-19 tablet by Met [facility] iazide 13:27: mouth st (HYZAAR) 38 daily. 50-12.5 mg per tablet SULFAMETHOX Yes Take by Victorino ston AZOLE-TRIME 1-19 mouth. Method i THOPRIM 13:27: st ORAL 38 diphenhydra 2020- No Take by Ho [place] mine HCl 09-16 mouth. Methodi (ANTIHISTAM 08:48: 00:00 st INE ORAL) 20 :00 magnesium 2020- No 400mg Q.5D Take 400 [place] oxide 09-16 mg by Method[facility] (MAG-OX) 08:47: 00:[address] 400 mg 59 :00 (two) (241.3 mg times a magnesium) day. tablet UNABLE TO 2020- No 2{squir Q.5D 2 Squirts Zapien FIND 09-16 t} into each Methodi 08:47: 00:[address] 44 :00 (two) times a day. Med Name: watura nector nasal spray tamsulosin 2020- No .4mg QD Take 0.4 [place] (FLOMAX) 09-16 mg by Methodi 0.4 mg 08:47: 00:[address] capsule,ext 02 :00 daily. ended release 24hr sulfamethox 2020- No 1{tbl} Q.5D Take 1 [place] azole-trime 09-16 tablet by Ak thodi thoprim 00:00: 23:[address] (Bactrim 00 :00 (two) DS) 800-160 times a mg per day for 5 tablet days. keTOROlac 2020- No 10mg Q6H Take 1 [place] (TORadol) 09-16 tablet (10 Met hodi 10 mg 00:00: 23:59 mg total) st tablet 00 :00 by mouth every 6 (six) hours as needed for moderate pain for up to 5 days. metoprolol 2020- No 100mg Q.5D Take 100 [place] tartrate 09-11 mg by Methodi (LOPRESSOR) 11:29: 11:[address] 100 mg 32 :26 (two) tablet times a day. pantoprazol 2020- No 40mg QD Take 40 mg Curry hoffman 09-11 by mouth Methodi (PROTONIX) 11:29: 11:29 daily. AM s t 40 MG EC 32 :26 tablet atorvastati 2020- No 10mg QD Take 10 mg Zapien n (LIPITOR) 09-11 by mouth Met hodi 10 mg 11:29: 11:[address] tablet 32 :26 losartan-hy 2020- No 1{tbl} QD Take 1 H [place] drochloroth 09-11 tablet by Ak partha iazide 11:29: 11:[address] (HYZAAR) 32 :26 daily. AM 100-12.5 mg per tablet clopidogreL 2020- No 75mg QD Take 75 mg Curry (PLAVIX) 75 09-11 by mouth Met [facility] mg tablet 11:29: 00:[address] 32 :00 PMLast dose 08/27/2020 sulfamethox 2020- No 1{tbl} Q.5D Take 1 H y[place] azole-trime 09-03 tablet by Ak [employer] thoprim 00:00: 11:[address] (Bactrim 00 :31 (two) DS) 800-160 times a mg per day for 7 tablet days. traMADoL acute pain 50mg Q6H Take 1 Zapien (ULTRAM) 50 09-03 tablet (50 M ethodi mg tablet 00:00: 11:29 mg total) st 00 :31 by mouth every 6 (six) hours as needed for moderate pain for up to 15 days .acute pain. docusate 2020- No 100mg Q.5D Take 1 [place] sodium 09-03 capsule Methodi (Colace) 00:00: 11:29 ([address] 100 MG 00 :31 total) by capsule mouth 2 (two) times a day for 30 days. ciprofloxac 2019- No 500mg Q.5D Take 1 [place] in (CIPRO) 05-21 tablet Method i 500 MG 00:00: 23:59 ([address] tablet 00 :00 total) by mouth 2 (two) times a day for 5 days. docusate 2019- No 100mg Q.5D Take 1 [place] sodium 05-20 capsule Methodi (Colace) 00:00: 23:59 ([address] 100 MG 00 :00 total) by capsule mouth 2 (two) times a day for 30 days. phenazopyri 2019-0 2020- No 100mg Q.[id number] Take 1 Curry dine 05-20 [id number] tablet Method i (Pyridium) 00:00: 23:59 3D ([address] 100 MG 00 :00 total) by tablet mouth 3 (three) times a day as needed for bladder spasms for up to 3 days. ciprofloxac 2019- 2020- No 500mg Q.5D Take 1 Janes sams in (CIPRO) 05-20 tablet Method i 500 MG 00:00: 00:00 ([address] tablet 00 :00 total) by mouth 2 (two) times a day for 7 days. oxybutynin 2019-0 2020- No 15mg QD Take 15 mg Zapien XL 03-20 by mouth Methodi (DITROPAN 11:03: 00:[address] XL) 10 MG 51 :00 evening. 24 hr tablet hydroCHLORO 2019-2019- No 25mg QD Take 25 mg Zapien thiazide 03-20 by mouth Method i (HYDRODIURI 11:03: 00:[address] L) 25 MG 33 :00 morning. tablet fluticasone 2019-2019- No 2{spray QD 2 sprays [place] (FLONASE) 03-20 } by Each Method i 50 11:03: 00:[address] mcg/actuati 21 :00 daily. on nasal spray cetirizine 2019-0 2020- No Take by Victorino colvinn HCl 03-20 mouth. Methodi (ALLERGY 11:03: 00:00 st RELIEF, 14 :00 CETIRIZINE, ORAL) benazepril 2020-0 2020- No 40mg QD Take 40 mg Zapien (LOTENSIN) 03-20 by mouth Meth dutch 40 MG 11:02: 00:[address] tablet 53 :00 morning. amlodipine- 2020-0 2020- No 1{capsu QD Take 1 Zapien benazepril 03-20 le} capsule by Me chavis (LOTREL) 11:02: 00:[address] 10-20 mg 46 :00 daily. per capsule Immunizations Ordered Immunization Filled Immunization Date Status Commen ts Source Name Name PFIZER COVID-19 MRNA 2020-10-06 Completed Jaylene ton VACCINATION 00:00:00 Orthodox Vital Signs Vital Name Observation Time Observation Value Comments Source Heart rate 2020-09-16 12:55:00 56 /min Curry Mukherjee Body temperature 2020-09-16 12:55:00 36.11 Nai Jaylene Mukherjee Respiratory rate 2020-09-16 12:55:00 18 /min Jaylene Mukherjee Oxygen saturation in 2020-09-16 12:55:00 98 /min Curry Mukherjee Arterial blood by Pulse oximetry Systolic blood 2020-09-16 12:55:00 163 mm[Hg] Jayleneto n Orthodox pressure Diastolic blood 2020-09-16 12:55:00 70 mm[Hg] [place] on [facility] pressure Body height 2020-09-16 08:51:00 162.6 cm Curry Mukherjee Body weight 2020-09-16 08:51:00 112.628 kg Curry Mukherjee BMI 2020-09-16 08:51:00 42.62 kg/m2 Curry Mukherjee Procedures Procedure Date / Time Performing Clinician Source Performed REMOVAL, NEUROSTIMULATOR 2020-09-16 11:09:00 Chelita Haynes DEVICE, SACRAL COVID-19 QUALITATIVE PCR 2020-09-12 11:21:00 Chelita Haynes MS AN ELECTIVE 2020-09-03 13:30:05 Bart Rootodist ENDOTRACHEAL AIRWAY INSERTION, 2020-09-03 12:54:00 Chelita Haynes ethodist NEUROSTIMULATOR, SACRAL COVID-19 QUALITATIVE PCR 2020-09-01 11:31:00 Chelita Haynes URINE CULTURE 2020-08-28 16:14:00 Germaine Rodriguez ECG PRE/POST OP 2020-08-28 14:38:49 Germaine Rodriguez HEMOGLOBIN A1C 2020-08-28 14:04:00 Germaine Rodriguez PARTIAL THROMBOPLASTIN 2020-08-28 14:04:00 Germaine Rodriguez TIME (PTT) PROTHROMBIN TIME WITH INR 2020-08-28 14:04:00 Germaine Rodriguez COMPREHENSIVE METABOLIC 2020-08-28 14:04:00 Germaine Rodriguez PANEL HC COMPLETE BLD COUNT 2020-08-28 14:04:00 Germaine Rodriguez W/AUTO DIFF ESTIMATED GFR 2020-08-28 14:04:00 Germaine Rodriguez ethodist URINALYSIS SCREEN AND 2020-08-28 14:03:00 Germaine Rodriguez MICROSCOPY, WITH REFLEX TO CULTURE MS AN ELECTIVE 2020-05-20 11:28:20 Bart Root ethodist SUPRAGLOTTIC AIRWAY CYSTOSCOPY, WITH 2020-05-20 11:09:00 Chelita Haynes PHOTOSELECTIVE VAPORIZATION OF PROSTATE, USING LASER ECG 12-LEAD 2020-05-16 12:40:43 Chelita Haynes ethodist COVID-19 QUALITATIVE PCR 2020-05-16 12:38:00 Chelita Haynes URINE CULTURE 2020-05-16 12:20:00 Germaine Rodriguez ethodi HEMOGLOBIN A1C 2020-05-16 12:17:00 Germaine Rodriguez PARTIAL THROMBOPLASTIN 2020-05-16 11:27:00 Germaine Rodriguez TIME (PTT) PROTHROMBIN TIME WITH INR 2020-05-16 11:27:00 Germaine Rodriguez HC COMPLETE BLD COUNT 2020-05-16 11:27:00 Germaine Rodriguez W/AUTO DIFF COMPREHENSIVE METABOLIC 2020-05-16 11:27:00 Germaine Rodriguez Orthodox PANEL ESTIMATED GFR 2020-05-16 11:27:00 Germaine Rodriguez ethodist URINALYSIS SCREEN AND 2020-05-16 11:26:00 Germaine Rodriguez MICROSCOPY, WITH REFLEX TO CULTURE URINE CULTURE 2020-03-20 12:47:00 Germaine Rodriguezodist COVID-19 QUALITATIVE PCR 2020-03-20 11:23:00 HaynesChelita rubio Curry Mukherjee ECG PRE/POST OP 2020-03-20 11:15:33 Germaine Rodriguez ethodist URINALYSIS SCREEN AND 2020-03-20 10:47:00 Germaine Rodriguez MICROSCOPY, WITH REFLEX TO CULTURE PARTIAL THROMBOPLASTIN 2020-03-20 10:47:00 Germaine Rodriguez TIME (PTT) PROTHROMBIN TIME WITH INR 2020-03-20 10:47:00 Germaine Rodriguez COMPREHENSIVE METABOLIC 2020-03-20 10:47:00 Germaine Rodriguez PANEL HC COMPLETE BLD COUNT 2020-03-20 10:47:00 Germaine Rodriguez W/AUTO DIFF ESTIMATED GFR 2020-03-20 10:47:00 Germaine Rodriguez ethodi Plan of Care Planned Activity Planned Date Details Comments Source Future Scheduled 2020-10-27 COVID-19 VACCINE (2 [place] [facility] Test 00:00:00 of 2 - Pfizer series) [code = COVID-19 VACCINE (2 of 2 - Pfizer series)] Future Scheduled 2020-03-29 INFLUENZA VACCINE [place] [facility] 00:00:00 [code = INFLUENZA VACCINE] Future Scheduled 1992 SHINGLES VACCINES [place] [facility] 00:00:00 (#1) [code = SHINGLES VACCINES (#1)] Future Scheduled 1960 Hepatitis C [place] Met hodist Test 00:00:00 screening (procedure) [code = 847233821] Encounters Start End Encounter Admission Attending Care Care Encounter Source Date/Time Date/Time Type Type Clinicians Facility Department ID 2020-10-06 2020-10-06 Outpatient [facility] [id number] [place] 00:00:00 00:00:[address] 2020-09-16 2020-09-16 Outpatient [facility] [id number] 282 [place] 00:00:00 00:00:00 CHELITA [address] 2020-09-12 2020-09-12 Outpatient [facility] [id number] 110 [place] 00:00:00 00:00:00 CHELITA [address] 2020-09-03 2020-09-03 Outpatient BELA, [facility] 241 [id number] 282 [place] 00:00:00 00:00:00 CHELITA [address] 2020-09-03 2020-09-03 Outpatient BELA [facility] 897 [id number] 282 [place] 00:00:00 00:00:00 CHELITA [address] 2020-09-01 2020-09-01 Outpatient BELA [facility] [id number] [place] 00:00:00 00:00:00 CHELITA [address] 2020-08-28 2020-08-28 Outpatient BELA [facility] [id number] [place] 00:00:00 00:00:00 CHELITA [address] 2020-05-20 2020-05-21 Outpatient BELA, [facility] 777 [id number] 806 [place] 00:00:00 00:00:00 CHELITA [address] 2020-05-16 2020-05-16 Outpatient BELA [facility] [id number] 135 [place] 00:00:00 00:00:00 CHELITA [address] 2020-03-20 2020-03-20 Outpatient BELA [facility] [id number] [place] 00:00:00 00:00:00 CHELITA 117 Method i 2020-03-17 2020-03-17 Office [facility] [id number] 14:29:59 16:51:55 Visit Shree Macias [id number] [facility] [id number] [facility] [id number] [facility] 204 Building Results Test Description Test Time Test Comments Results Result Comments Source COVID-19 qualitative PCR 2020-09-12 20:12:48 Test Item Value Reference Range Interpretation Comme nts Interpretation (test code = Negative results do not 3973612) preclude 2019-nCoV infection and should not be used as the sole basis for treatment or other patient management decisions. Negative results must be combined with clinical observations, patient history, and epidemiological information. COVID-19 qualitative PCR Not-Detected Not-Detected result (test code = 82195-7) COVID-19 qualitative PCR See link below for PDF Lab Case Number: (test code = 7070) Report [id number] 877 [place] [id number] 13:30:05Bart Root MICHAEL Porter 09/03/2020 1:30 PMAirway Date/Time: 09/03/2020 1:30 PM Location: OR Performed by: MICHAEL/Hugh/ARCHITECTURAL DESIGNER/AA: Ivett Bart MICHAEL PorterAuthorized by: Mckinley Briggs DO Urgency: ElectiveDifficult Airway: No Preoxygenated with 100% O2: Yes C- spine Precautions Maintained Throughout: Yes Mask Ventilation: Not attemptedFinal Airway Type: Endotracheal airwayFinal EndotrachealAirway: ETTCuffed: Yes Technique Used: Direct laryngoscopyDevices/Methods Used in Placement: Intubating styletInsertion Site: OralBlade Type: MillerLaryngoscope Blade/Videolaryngoscope Blade Size: 2ETT Size (mm): 8.0Cuff at minimum occlusion pressure: Yes Measured from: LipsETT to Lips (cm): 23Placement Verified by: CO2 detection, direct visualization and equal breath sounds Laryngoscopicview: Grade I - full view of glottisRapid Sequence Induction (RSI): No Modified RSI: No Number ofAttempts at Approach: [address] [place] [address] MethodistECG Pre/Post [id number] 11:04:38 Test Item Value Reference Range Interpretation Comments Ventricular rate (test 64 code = 253) Atrial rate (test code = 64 255) MS interval (test code = 144 266) QRSD interval (test code 94 = 260) QT interval (test code = 462 264) QTC interval (test code 476 = 265) P axis 1 (test code = 24 267) QRS axis 1 (test code = 39 268) T wave axis (test code = 82 270) EKG impression (test Normal sinus code = 273) rhythm-Prolonged QT-Abnormal ECG-No previous ECGs available-Electronica lly Signed By Victor Hugo KNUTSON, [facility] ([id number]) on 08/29/2020 11:04:33 AM Curry MethodistUrinalysis screen and microscopy, with reflex to culture 2020-08-28 18:47:04 Test Item Value Reference Range Interpretation Comments Specimen site (test Clean catch code = 1742920) Color, UA (test code = Straw 5778-6) Appearance, UA (test Clear code = 5767-9) Specific gravity, UA 1.012 1.001-1.035 (test code = 5811-5) pH, UA (test code = 7.0 5.0-8.5 5803-2) Protein, UA (test code 1+ Negative A = 82991-3) Glucose, UA (test code Negative Negative = 06140-0) Ketones, UA (test code Negative Negative = 2514-8) Bilirubin, UA (test Negative Negative code = 5770-3) Blood, UA (test code = Moderate Negative A 5794-3) Nitrite, UA (test code Positive Negative A = 5802-4) Urobilinogen, UA (test <2.0 <2.0 code = 08312-4) Leukocyte esterase, UA Moderate Negative A (test code = 5799-2) WBC, UA (test code = 8 See_Comment H [Autom ated 5821-4) message] The sy stem which generated this result transmitted reference range : 0 - 1 /HPF. The reference range was not used to interpret this result as normal/abnormal . RBC, UA (test code = 51 See_Comment H [Autom ated 08725-3) message] The sy stem which generated this result transmitted reference range : 0 - 5 /HPF. The reference range was not used to interpret this result as normal/abnormal . Bacteria, UA (test code Few None seen = 31275-6) Yeast, UA (test code = None seen 65058-4) Yeast with None seen pseudohyphae, UA (test code = 95661-8) Amorphous crystals Few (test code = 94492-9) Lab Interpretation Abnormal (test code = 25101-6) [facility] [id number] 16:09:06 Test Item Value Reference Range Interpretation Comments Sodium (test code = 140 See_Comment [Automa ross message] 2951-2) The system [employer] generated this result transmit ross reference range : 135 - 148 mEq/L. Th e reference range was not used to interpret this result as normal/abnormal . Potassium (test code = 3.7 See_Comment [Aut omated message] 7523-3) The system [employer] generated this result transmit ross reference range : 3.5 - 5.0 mEq/L. Th e reference range was not used to interpret this result as normal/abnormal . Chloride (test code = 102 See_Comment [Auto mated message] ) The system [employer] generated this result transmit ross reference range : 98 - 112 mEq/L. Th e reference range was not used to interpret this result as normal/abnormal . CO2 (test code = 24 See_Comment [Automated message] 2028-04) The system [employer] generated this result transmit ross reference range : 24 - 31 mEq/L. The reference range was not used to interpret this result as normal/abnormal . Anion gap (test code = 14@ANIO See_Comment [Aut omated message] 47264-5) The system [employer] generated this result transmit ross reference range : 7 - 15 mEq/L. The reference range was not used to interpret this result as normal/abnormal . BUN (test code = 15 mg/dL 8-23 3094-0) Creatinine (test code = 0.90 mg/dL 0.7-1.2 2160-0) Glucose (test code = 87 mg/dL 65-99 2345-7) Calcium (test code = 9.0 mg/dL 8.8-10.2 69554-9) Protein (test code = 7.3 g/dL 6.3-8.3 -[place] n 2885-2) 4.6-7.0 g/ dL1 week 4.4-7.6 g/dL7 months-1year 5.1-7.3 g/dL1 -2 years 5.6-7.5 g/dL>3 years 6.0-8.0 g/dL18- 150 6.3-8.3 g/dL Albumin (test code = 3.4 g/dL 3.5-5 L 1751-7) A/G ratio (test code = 0.9 0.7-3.8 1759-0) Alkaline phosphatase 80 U/L 40-129 (test code = 6768-6) AST (test code = 30 U/L -50 1919-8) ALT (test code = 17 U/L -50 2-6) Total bilirubin (test 0.4 mg/dL 0-1.2 code = 1974-2) Lab Interpretation Abnormal (test code = 13181-5) [place] MethodistEstimated [id number] 16:09:04 Test Item Value Reference Range Interpretation Comments Estimated GFR (test 81 mL/min/1.73 m2 Dao pandya Units code = 5488) InterpretationG 1 >=90 Normal or highG2 60-89 Mildly edwmjnbwkN8y 45-59 Mildly to mode rately xhjxgxbppV2h 30-44 Moderately to severely decreasedG4 15-29 Severely decre asedG5 <15 Kidn ey failureThe eGFR was calculated beverly bueno the Chronic Kidney Disease Epidemiology Co llaboration (CKD-EPI) equat ion. Interpretation is based on recommendations of the National Kidney Foundation-Kidn ey Disease Outcomes Qualit y Initiative (NKF-KDOQI) pub lished in 2014. Zapien MethodistHemoglobin [id number] 16:06:33 Test Item Value Reference Range Interpretation Comments Hemoglobin A1C (test 6.2 % 4-5.6 H HbA1c c utoffs for code = 09792-6) diagnosing diabetes:4.0% - 5.6% = normal5.7% - 6.4% = increased risk for diabetes (prediabetes)9> =6.5% = hwngxdlo4Zyne s for glycemic contro l (ADA 2016)< 7.0% Ta rget for non adults with suhail betes. More or less stringent targe ts may be appropriate for individual aneudy ents. <7.5% Target for Children and adolescents wit h type 1 diabetes. Lab Interpretation (test Abnormal code = 28514-9) [place] MethodistProthrombin time with [id number] 15:57:45 Test Item Value Reference Range Interpretation Comments Prothrombin time (test 16.8 See_Comment H [Aut omated message] code = 5902-2) The system [employer] generated this result transmitted ref erence range: 11.5 - 1 4.5 sec. The refere nce range was not u sed to interpret this result as normal/abnor mal. INR (test code = 1.4 The Interna tional 20886-1) Normalized Rati o (INR) is a therapeuti c monitoring tool for patients who ar e stable on oral anticoagulant t herapy. An INR of 2.0-3 .0 is suggested for d eep vein thrombosis/pulm onary embolism. Lab Interpretation Abnormal (test code = 27822-0) [place] MethodistPartial thromboplastin time, [id number] 15:57:02 Test Item Value Reference Range Interpretation Comments PTT (test code = 38.8 See_Comment H PTT therape uti range 84130-3) for unfractiona ross heparin is61.0- 112.0 seconds which corresponds to Anti-Xa0.3-0.7 U/ml. [Automated mess age] The system [employer] generated this result transmitted ref erence range: 23.0 - 3 6.0 sec. The refere nce range was not u sed to interpret this result as normal/abnor mal. Lab Interpretation Abnormal (test code = 48699-5) [facility] with platelet and [id number] 15:41:26 Test Item Value Reference Range Interpretation Comments WBC (test code = 10.88 See_Comment [Automated message] 88021-9) The system [employer] generated this result transmit ross reference range : 4.50 - 11.00 k/ uL. The reference r kael was not used to interpret this result as normal/abnormal . RBC (test code = 4.89 m/uL 4.4-6 00147-9) HGB (test code = 718-7) 12.9 g/dL 14-18 L HCT (test code = 4544-3) 40.4 % 41-51 L MCV (test code = 787-2) 82.6 fL 82-100 MCH (test code = 785-6) 26.4 pg 27-34 L MCHC (test code = 786-4) 31.9 g/dL 31-37 RDW - SD (test code = 42.7 fL 37-55 91738-0) MPV (test code = 10.0 fL 8.8-13.2 68380-1) Platelet count (test 235 See_Comment [Autom ated message] code = 83745-6) The system [employer] [facility] generated this result transmit ross reference range : 150 - 400 k/uL. The reference range was not used to interpret this result as normal/abnormal . Nucleated RBC (test code 0.00 See_Comment [A utomated message] = 04339-5) The system [employer] generated this result transmit ross reference range : /100 WBC. The reference range was not used to interpret this result as normal/abnormal . Neutrophils (test code = 73.5 % 39-69 H 13183-7) Lymphocytes (test code = 14.8 % 25-45 L 81201-8) Monocytes (test code = 9.6 % 0-10 93639-5) Eosinophils (test code = 0.8 % 0-5 70048-9) Basophils (test code = 0.6 % 0-1 26872-3) Immature granulocytes 0.7 % 0-1 "Immat ure (test code = 38426-9) granul ocytes" (promyelocytes, myelocytes, metamyelocytes) Lab Interpretation (test Abnormal code = 00560-6) Curry [id number] 11:28:20Bart Root CRNA 05/20/2020 11:28 AMAirway Date/Time: 05/20/2020 11:28 AMPerformed by: Bart Root CRNAAuthorized by: Tyrese De Jesus MD Location: ORUrgency: ElectiveDifficult Airway: No Resident/ARCHITECTURAL DESIGNER/AA: Bart Root CRNAPerformed by: resident/ARCHITECTURAL DESIGNER/AAPreoxygenated with 100% O2: Yes C-spine Precautions Maintained Throughout: Yes Mask Ventilation: Not attemptedFinal Airway Type: Supraglottic airwayFinal LMA: I-GelLMA Size: 5Number of Attempts at Approach:[address] [place] [address] [facility] [id number] 01:03:25 Test Item Value Reference Range Interpretation Comments Ventricular rate (test 56 code = 253) Atrial rate (test code 56 = 255) MS interval (test code 162 = 266) QRSD interval (test 92 code = 260) QT interval (test code 454 = 264) QTC interval (test code 438 = 265) P axis 1 (test code = 21 267) QRS axis 1 (test code = 10 268) T wave axis (test code 47 = 270) EKG impression (test Sinus code = 273) bradycardia-Otherwise normal ECG-In automated comparison with ECG of 20-MAR-2020 11:15,-No significant change was found- Curry Mukherjee
[2020-10-22 15:00] VITALS: BMI 42.4
[2020-10-22] MEDS ORDERED: POLYETHYL GLY 3350 17 GM/DOSE PO PRN (15:00)
[2020-10-22] MEDS ORDERED: NACHLORIDE 0.45% 1,000 ML IV SCH (15:00)
[2020-10-22] MEDS ORDERED: ACETAMINOPHEN 325 MG TABLET PO PRN (15:00)
[2020-10-22] MEDS ORDERED: DIPHENHYDRAMINE 12.5MG/5ML LIQ PO PRN (15:00)
[2020-10-22] MEDS ORDERED: ONDANSETRON 4 MG/2 ML VIAL IV PRN (15:00)
[2020-10-22] MEDS ORDERED: LOPERAMIDE HCL 2 MG CAPSULE PO PRN (15:00)
[2020-10-22 15:46] LABS: Absolute Lymphocytes (CBC) 1.7 K/uL (0.7-4.9); Basophils % 0.4 % (0-1.3); Hematocrit 40.2 % (39.6-49.0); Lymphocytes % 12.3 % (15.3-44.8); RBC Red Blood Cell Count 4.88 M/uL (4.33-5.43)
[2020-10-22 15:49] LABS: Protime INR 1.38
--- NOTE | 2020-10-22 15:51 | RAD REPORT ---
EXAM DESCRIPTION: RAD - Chest Pa And Lat (2 Views) - 10/22/2020 3:30 pm CLINICAL HISTORY: abdominal pain Chest pain. COMPARISON: Chest Pa And Lat (2 Views) dated 09/25/2019; Chest Pa And Lat (2 Views) dated 12/30/2017; C hest Pa And Lat (2 Views) dated 01/01/2016; CHEST PA AND LAT 2 VIEW dated 03/09/2011 FINDINGS: A poorly defined opacity is present left retrocardiac region, projecting posteriorly on th e lateral view, possibly an infiltrate/pneumonia. The heart is mildly prominent in size. No displaced fractures.
[2020-10-22] MEDS ORDERED: ONDANSETRON 4 MG (ODT) TAB PO PRN (16:05)
[2020-10-22 16:34] LABS: Albumin 3.5 g/dL (3.4-5.0); Bilirubin Direct 0.2 mg/dL (0-0.2); Bilirubin Total 0.5 mg/dL (0.2-1.0); Phosphorus 3.7 mg/dL (2.5-4.9); Potassium 4.2 mmol/L (3.5-5.1); Thyroid Stimulating Hormone 2.8 uIU/mL (0.360-3.740)
[2020-10-22 16:37] LABS: Magnesium 1.2 mg/dL (1.8-2.4)
[2020-10-22] MEDS: HYDROMORPHONE HCL 1 MG/ML INJ IV PRN ×2 (16:45→23:15)
[2020-10-22] MEDS ORDERED: Magnesium Sulfate 2gm IVPB 2 G/50 ML BAG IV ONE (16:56)
--- NOTE | 2020-10-22 17:34 | RAD REPORT ---
EXAM DESCRIPTION: CT - Abdomen W Contrast CLINICAL HISTORY: adbominal pain Abdominal pain COMPARISON: Abdomen Pelvis W Contrast dated 09/25/[address] scans are performed using dose optimization technique as appropriate and may includ e automated exposure control or mA/KV adjustment according to patient size. FINDINGS: Mild linear opacities are present in both lung bases. Suspected partially visualized media stinal lymph node present measuring 17 mm. There is a 5.2 x 4.1 cm mass along the right lower anterior rib cage. This appears to emanate from th e rib itself near the junction with the anterior cartilage. There is evidence of a similar process but less pronounced about left posterior seventh rib with ther e is irregularity of the underlying rib soft tissue thickening up to 2 cm. Innumerable masses are present throughout the liver parenchyma compatible with diffuse hepatic metast atic disease. The spleen, pancreas, adrenal glands are within normal limits. Parapelvic cyst is present on the left measuring 22 mm. No solid renal mass apparent. No free fluid, bowel obstruction or free air. Normal appendix. Mild sigmoid diverticulosis without di verticulitis. No significant adenopathy in the abdomen. Postsurgical hardware is in place involving lumbar spine. IMPRESSION: Diffuse pattern of liver metastases suspected. Soft tissue masses involving the ribs, largest on the right, likely also metastatic in etiology.
--- NOTE | 2020-10-22 19:04 | RAD REPORT ---
EXAM DESCRIPTION: US - Abdomen Exam Complete - 10/22/2020 6:43 pm CLINICAL HISTORY: Abdominal pain. abdominal pain COMPARISON: Renal Ultrasound-Complete dated 02/08/2020 FINDINGS: Numerous hepatic masses are present compatible with metastatic disease. No biliary dilatat ion. Rib cage mass is visualized as well on right sided ultrasound images. The gallbladder demonstrates no gallstones, pericholecystic fluid or gallbladder wall thickening. Co mmon bile duct is normal in caliber measuring 4 mm. Both kidneys are normal in size, shape and echotexture. No hydronephrosis, focal lesion of concern or perinephric fluid. The spleen is normal in size measuring 11 cm. The pancreas and aorta are obscured by bowel gas. The visualized aspects of the IVC are grossly normal. IMPRESSION: Numerous hepatic masses are present most compatible with metastasis Large rib cage mass is seen in the right upper quadrant.
[2020-10-22] MEDS ORDERED: ACETAMINOPHEN 500 MG TAB PO PRN (21:26)
[2020-10-22] MEDS: METOPROLOL TAR 25 MG TAB PO SCH (21:47)
[2020-10-22 22:38] LABS: Urine Appearance CLEAR; Urine Bilirubin NEGATIVE (NEG); Urine Blood 1+ (NEG); Urine Color YELLOW; Urine Glucose NEGATIVE (NEG); Urine Microscopic Reflex ORDER UMIC; Urine Protein NEGATIVE (NEG); Urine Specific Gravity >=1.030 (1.005-1.030); Urine Urobilinogen 0.2 mg/dL (0.2-1.0); Urine pH 6.5 (5.0-7.0)
[2020-10-22 22:51] LABS: Urine Bacteria 20-50 /HPF (NONE SEEN); Urine RBC <5 /HPF (NONE SEEN)
[2020-10-23 05:59] LABS: Absolute Lymphocytes (CBC) 2.1 K/uL (0.7-4.9); Basophils % 0.5 % (0-1.3); Hematocrit 36.3 % (39.6-49.0); Lymphocytes % 20.7 % (15.3-44.8)
[2020-10-23 06:08] LABS: Potassium 4.1 mmol/L (3.5-5.1)
[2020-10-23] MEDS ORDERED: MAGNESIUM SULFATE 1 gm IVPB 1 GM/100 ML BAG IV ONE (07:35)
[2020-10-23] MEDS ORDERED: ENOXAPARIN 40 MG/0.4 ML SQ SCH (09:00)
[2020-10-23] MEDS ORDERED: CLOPIDOGREL 75 MG TABLET PO SCH (09:00)
[2020-10-23] MEDS: PANTOPRAZOLE 40MG TABLET PO SCH ×2 (09:45→20:42)
[2020-10-23] MEDS: ATORVASTATIN 10 MG TAB PO SCH (09:45)
[2020-10-23] MEDS: METOPROLOL TAR 25 MG TAB PO SCH ×2 (09:48→20:42)
[2020-10-23] MEDS: CEFTRIAXONE/SWI 1gm 1 GM/10 ML SYR IV SCH (11:55)
[2020-10-23 15:25] LABS: Protime INR 1.36
--- NOTE | 2020-10-23 21:14 | P.PN ---
Subjective Date of Service: 10/23/20 Chief Complaint: PAIN UPPER ABDOMEN Subjective: No new changes HE STILL HAS THE PAIN YESTERDAY. Review of Systems 10-point ROS is otherwise unremarkable General: Weakness Respiratory: Pleuritic Pain Physical Examination - Vital Signs Temperature: 97.8 F Blood Pressure: 135/69 Pulse: 62 Respirations: 18 Pulse Ox (%): 92 - Physical Exam General: Moderate distress, Obese HEENT: Atraumatic, PERRLA, EOMI Neck: Supple, JVD not distended Respiratory: Clear to auscultation bilaterally, Normal air movement Cardiovascular: Regular rate/rhythm, Normal S1 S2 Gastrointestinal: Tenderness (RUQ) Musculoskeletal: No tenderness Integumentary: No rashes Neurological: Normal speech, Normal tone, Normal affect Lymphatics: No axilla or inguinal lymphadenopathy - Studies Laboratory Data (last 24 hrs) 10/23/20 15:02: PT 15.7 H, INR 1.36, APTT 35.8 10/23/20 05:15: Magnesium 1.8 D 10/23/20 05:15: Sodium 137, Potassium 4.1, BUN 19 H, Creatinine 0.93, Glucose 82 10/23/20 05:15: WBC 10.00 D, Hgb 12.0 L, Hct 36.3 L, Plt Count 230 Medications List Reviewed: Yes Assessment And Plan - Current Problems (Diagnosis) (1) Metastasis to liver Current Visit: Yes Status: Acute Plan: THIS IS A NEW FINDING FOR HIM. HE HAS NO KNOWN CANCER UNTIL THIS. PRIMARY SOURCE OF THIS CANCER IS UNKNOWN. HE HAS BPH AND RETENTION OF URINE BUT UROLOGIST HAS NOT SEEN ANY CANCER YET. I TALKED TO PATIENT, HE WILL TALK TO . I TALKED TO DR. MICHELLE ABOUT BIOPSY, HE WILL BE DOING IN AM. EITHER RIB MASS OR LIVER WILL BE BIOPSIED. 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
[2020-10-24] MEDS: HYDROMORPHONE HCL 1 MG/ML INJ IV PRN ×2 (02:16→09:11)
--- NOTE | 2020-10-24 09:05 | RAD REPORT ---
EXAM DESCRIPTION: CT - Thorax W/ Con - 10/24/2020 8:54 am CLINICAL HISTORY: rib masses COMPARISON: Abdomen W Contrast dated 10/22/2020, abdomen ultrasound October 22 TECHNIQUE: Dynamically enhanced 5 mm thick images of the chest were obtained during administration o f 100 mL non-ionic IV contrast. All CT scans are performed using dose optimization technique as appropriate and may include automated exposure control or mA/KV adjustment according to patient size. FINDINGS: Lung base scarring and/ or atelectasis changes are present. No mass or other finding of a primary lung malignancy. No pleural thickening or pleural effusion. No pneumothorax. No abnormal axil annie lymphadenopathy. Patient has a few small nonspecific mediastinal lymph nodes. No aorta or pulmon josseline tear I will tree abnormality. No cardiomegaly or pericardial effusion. The patient has a known 7 x 4 centimeter mass that involves the chest wall and lateral right seventh rib. There is an ill-defined 1.5-2 cm soft tissue mass involving the chest wall and posterior left se venth rib. Multiple liver lesions are present which have been previously detailed. IMPRESSION: No finding for a primary lung malignancy. Large 7 x 4 centimeter mass of the chest wall and lateral right seventh rib with a 1.5-2 centimeter m ass involving the chest wall and posterior left seventh rib.
[2020-10-24] MEDS: PANTOPRAZOLE 40MG TABLET PO SCH (09:11)
[2020-10-24] MEDS: ATORVASTATIN 10 MG TAB PO SCH (09:11)
[2020-10-24] MEDS: METOPROLOL TAR 25 MG TAB PO SCH (09:15)
[2020-10-24 10:16] VITALS: TEMP 96.9
[2020-10-24] MEDS: CEFTRIAXONE/SWI 1gm 1 GM/10 ML SYR IV SCH (10:23)
[2020-10-24] MEDS ORDERED: MIDAZOLAM HCL 2 MG/2 ML INJ ONE (11:09)
[2020-10-24] MEDS ORDERED: FENTANYL CITR 100 MCG/2 ML ONE (11:09)
[2020-10-24] MEDS ORDERED: NALOXONE 0.4 MG/ML VIAL ONE (11:10)
[2020-10-24] MEDS ORDERED: FLUMAZENIL 0.1 MG/ML (5 mL VIAL) IV ONE (11:10)
[2020-10-24] MEDS ORDERED: NA CHLORIDE 0.9% 1,000 ML ONE (11:10)
--- NOTE | 2020-10-24 12:29 | RAD REPORT ---
EXAM DESCRIPTION: - BX SKIN SUBCUT TISSUE/MUC MEMB - 10/24/2020 12:06 pm CLINICAL HISTORY: SOFT TISSUE MASS COMPARISON: Thorax W/ Con dated 10/24/2020; Abdomen W Contrast dated 10/22/2020; Abdomen Exam Complete dated 10/22/2020 TECHNIQUE: Patient presents for image guided biopsy of abnormal findings in the liver and right-side rib. Biopsy plan was to perform biopsy of the large rib lesion with pathologic assessment for adequa cy to be performed at that time. If the rib lesion biopsy was not adequate, biopsy of 1 of the liver lesions was to be performed. The rib and liver biopsy plan was discussed with the patient in detail. Risks and alternatives were d iscussed. After answering all questions, both oral and written consent were obtained. A time-out proc edure was performed. IV access and physiologic monitors were in place. Sonographic imaging identified the 6-centimeter siz ed right rib lesion. Skin and deeper tissues were anesthetized with 1% lidocaine. Patient did express pain with pressure along the right side of the lower chest. Patient was medicated with 100 microgram s fentanyl for pain control. Patient was monitored by nursing personnel throughout the course of the procedure. The lateral lower chest was prepped and draped in the usual sterile fashion. The skin and deeper tiss ues down to the mass lesion anesthetized with 1% lidocaine. Under direct sonographic visualization a 17 gauge localizer needle was advanced. Tip was placed at the lateral inferior margin of the mass. An 18 gauge biopsy needle was advanced through the introducer needle and was seen to extend into the ma ss under direct sonographic visualization. A 2 centimeter core biopsy was obtained. A second 2 centim eter core biopsy was also obtained. The localizer needle was withdrawn and direct pressure applied to the puncture site. Preliminary cytology indicated adequate tissue for diagnosis. Liver biopsy was therefore not performe d. Post biopsy imaging showed no abnormal bleeding or hematoma formation in the lesion or the overlying soft tissues. Hemostasis was obtained at the puncture site. A sterile bandage was placed. Patient's vital signs were stable throughout the procedure. Medication time was 30 minutes. Patient w as transferred back to the floor for continued care. IMPRESSION: Ultrasound-guided biopsy of the right rib lesion was performed as detailed. All obtained material was given to pathology for cytology/ histology assessment. Patient tolerated the procedure well without complications. Vital signs were stable throughout the pr ocedure.
[2020-10-24 12:37] VITALS: BP 161/66
[2020-10-24 13:14] VITALS: O2SAT 96
--- NOTE | 2020-10-24 13:55 | P.DS ---
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 DAVIS CAME IN WITH RUQ PAIN AND PAIN IN LOWER RIBS. UNFORTUNATELY HE HAS NEW ONSET METASTATIC CANCER TO LOWER RIBS WIT 7 CM MASS AND ALSO METASTATIC DISEASE TO LIVER BOTH OF UNKNOWN PRIMARY CANCER YET. PATHOLOGY REPORT IS PENDING AFTER RIB BIOPSY TODAY. HE WANTS TO GO TO [facility]. I TOLD THE PROCESS OF GOING TO PATIENT CENTER TO GET ENTRANCE TO [facility]. HIS PROGNOSIS IS POOR. Vital Signs/Physical Exam: Temp Pulse Resp BP Pulse Ox 96.9 F 58 22 H 161/66 H 94 10/24/20 12:00 10/24/20 12:00 10/24/20 12:00 10/24/20 12:00 10/24/20 12:00 Laboratory Data at Discharge: WBC 10.00 K/uL (4.3-10.9) D 10/23/20 05:15 Hgb 12.0 g/dL (13.6-17.9) L 10/23/20 05:15 Hct 36.3 % (39.6-49.0) L 10/23/20 05:15 Plt Count 230 K/uL (152-406) 10/23/20 05:15 PT 15.7 SECONDS (9.5-12.5) H 10/23/20 15:02 INR 1.36 10/23/20 15:02 APTT 35.8 SECONDS (24.3-36.9) 10/23/20 15:02 Sodium 137 mmol/L (136-145) 10/23/20 05:15 Potassium 4.1 mmol/L (3.5-5.1) 10/23/20 05:15 BUN 19 mg/dL (7-18) H 10/23/20 05:15 Creatinine 0.93 mg/dL (0.55-1.3) 10/23/20 05:15 Glucose 82 mg/dL (74-106) 10/23/20 05:15 Phosphorus 3.7 mg/dL (2.5-4.9) 10/22/20 15:23 Magnesium 1.8 mg/dL (1.8-2.4) D 10/23/20 05:15 Total Bilirubin 0.5 mg/dL (0.2-1.0) 10/22/20 15:23 AST 46 U/L (15-37) H 10/22/20 15:23 ALT 31 U/L (12-78) 10/22/20 15:23 Alkaline Phosphatase 153 U/L (45-117) H 10/22/20 15:23 Home Medications: Atorvastatin Calcium [Lipitor*] 10 mg PO DAILY 02/03/15 Clopidogrel Bisulfate [Plavix*] 75 mg PO DAILY 02/03/15 Metoprolol Tartrate [Lopressor*] 100 mg PO BID 02/03/15 Acetaminophen [Tylenol] 500 mg PO Q6H PRN 01/03/18 Pantoprazole [Protonix Tab*] 1 tab PO BID 09/25/19 Losartan/Hydrochlorothiazide [Losartan-Hctz 100-25 mg Tab] PO DAILY 10/24/20 Tramadol HCl [Ultram] 50 mg PO QID #28 tablet 10/24/20 New Medications: Tramadol HCl [Ultram] 50 mg PO QID #28 tablet
[2020-10-25] MEDS ORDERED: LOSARTAN/HCTZ 50-12.5 PO SCH (09:00)
[2020-10-27 11:00] LABS: Vitamin D 1,25-Dihydroxy Total 27 pg/mL (18-72); Vitamin D,1,25-OH2, D2 <8 pg/mL
== END 2020-10-24 14:38 | disposition home or self-care (01) ==
LOC: 2ND 14:00
PROVIDERS: ADMIT Internal Medicine; ATTEND Internal Medicine
PROC: 0PB13ZX Excision of 1 to 2 Ribs, Percutaneous Approach, Diagnostic (ICD-10-PCS; principal; 2020-10-24)
DX: C79.51 Secondary malignant neoplasm of bone (principal); C80.1 Malignant (primary) neoplasm, unspecified; C78.7 Secondary malignant neoplasm of liver and intrahepatic bile duct; I10 Essential (primary) hypertension; E78.5 Hyperlipidemia, unspecified; G89.29 Other chronic pain; M54.9 Dorsalgia, unspecified; Z20.822 Contact with and (suspected) exposure to COVID-19
CPT/HCPCS: 20220; 87040; 87088; 85025 ×2; 87086; 80048 ×2; 36415 ×2; 83735 ×2; 84100; 85610 ×2; 80076; 88305; 85730 ×2; 82652; 88333; 84443; 87077 ×2; 87186 ×2; 82607; 74160; 71260; 11102; 71046; 76700; 76942; U0003; Q9967 ×2; J1650; J3010; J3475 ×2; J1170 ×4; J7030; J2405; G0379; G0378 ×3; 81003; 81015; J2250; J2310